=== PATIENT | female | born 1975 | race Caucasian/White ===

== ENCOUNTER 2017-02-13 19:07 | Emergency (ER) | payer BC ==
[~2017-02-13] VITALS: Ht 154.9 cm; Wt 58.3 kg
[2017-02-13 19:56] LABS: EOSINOPHIL (%) 1.5 % (0-5); EOSINOPHIL COUNT 0.1 K/uL (0-0.3); HEMATOCRIT 37.1 % (36.0-46.0); IMMATURE GRANULOCYTE (%) 0.2 % (0.0-0.7); INSTRUMENT ABS NEUTROPHIL CT 4.8 K/uL; LYMPHOCYTE COUNT 3.4 K/uL (1.0-2.8); MCH 28.2 PG (29.0-34.0); MCHC 33.4 G/DL (30.0-36.0); MCV 84.3 FL (83-99); MEAN PLAT.VOLUME 9.6 uM^3 (9.5-12.4); MONOCYTE (%) 5.9 % (3-12); MONOCYTE COUNT 0.5 K/uL (0-0.8); NEUTROPHIL (%) 53.5 % (45-76); NEUTROPHIL COUNT 4.8 K/uL (1.8-6.4); PLATELET COUNT 262 K/uL (156-360); RBC DIS.WIDTH-CV 12.7 % (11.8-14.6); RBC DIS.WIDTH-SD 38.9 % (39-53); WHITE BLOOD COUNT 8.9 K/uL (4.1-10.2)
[2017-02-13 19:59] LABS: ADD MIUA? YES; BILIRUBIN NEGATIVE; BLOOD SMALL; COLOR YELLOW ((YELLOW)); GLUCOSE (STRIP) NEGATIVE; KETONES NEGATIVE; LEUKOCYTES LARGE; NITRITE NEGATIVE; PROTEIN (STRIP) 30; SPECIFIC GRAVITY 1.026 (1.000-1.030)
[2017-02-13 20:02] LABS: CHLORIDE 107 mEq/L (99-109); POTASSIUM 3.6 mEq/L (3.7-5.4); SODIUM 139 mEq/L (136-147)
[2017-02-13 20:05] LABS: GLUCOSE 98 mg/dL (70-99)
[2017-02-13 20:06] LABS: ANION GAP 8 MEQ/L (2-14)
[2017-02-13 20:07] LABS: TOTAL BILIRUBIN 0.2 mg/dL (0.0-1.0)
[2017-02-13 20:08] LABS: ALKALINE PHOSPHATASE 49 IU/L (3-129); GFR ESTIMATE (CALCULATED) > 59 mL/min/
[2017-02-13 20:09] LABS: UREA NITROGEN (BUN) 22 mg/dL (9-23)
[2017-02-13 20:20] LABS: BACTERIA RARE /HPF; EPITHELIAL CELLS 1+ /HPF; MUCUS TRACE /LPF; RED BLOOD CELLS 0-5 /HPF (0-5); UCUL ADDED? YES
[2017-02-13 20:50] LABS: QUANTITATIVE HCG < 4.0 MIU/ML
[2017-02-13] MEDS ORDERED: ZOFRAN4 MG PO (23:05)
[2017-02-13] MEDS ORDERED: BACTRIM,SEPT1 TABLET PO (23:05)
[2017-02-13 23:11] VITALS: BP 122/71
== END 2017-02-13 23:12 | disposition home or self-care (01) ==
LOC: EME 19:07
PROVIDERS: Physician Assistant Medical
DX: N39.0 Urinary tract infection, site not specified (principal); R11.2 Nausea with vomiting, unspecified; N20.0 Calculus of kidney; R42 Dizziness and giddiness; K59.00 Constipation, unspecified; Z88.0 Allergy status to penicillin
CPT/HCPCS: 74020; 74176; 80053; 81003; 84702; 85025; 87086; 99281; 99285; J1885; J2405; J7030